=== PATIENT | female | born 1975 | race Caucasian/White ===

== ENCOUNTER 2017-05-27 05:36 | Emergency (ER) | payer BC ==
[~2017-05-27] VITALS: Ht 170.2 cm; Wt 93.7 kg
[~2017-05-27 05:36] MED LIST: TYLENOL WITH C1 EACH PO
[2017-05-27] MEDS ORDERED: PERCOCET 5/31 TABLET PO (08:04)
[2017-05-27 08:21] VITALS: BP 126/89
== END 2017-05-27 08:22 | disposition home or self-care (01) ==
LOC: EME 05:36
DX: S42.301A Unspecified fracture of shaft of humerus, right arm, initial encounter for closed fracture (principal); Z88.5 Allergy status to narcotic agent
CPT/HCPCS: 73030; 99281; 99284